=== PATIENT | male | born 1960 | race Caucasian/White ===

== ENCOUNTER → 2017-06-27 | Outpatient (CLI) | payer OTHER ==
[~2017-06-27] MED LIST: BIOF1TAB PO
--- NOTE | 2017-06-27 15:11 | RADIOLOGY IMAGING REPORT ---
FACILITY: [facility] [place] PATIENT NAME: Clint De La Rosa : 1960 MR: [id number] V: [id number] EXAM DATE: ORDERING PHYSICIAN: ANUPAMA DELGADO TECHNOLOGIST: [place] [facility] [place] De La [place] : 1960 Visit/Account:[id number] Date of Sevice: 06/27/2017 Exam type: CHEST PA AND LAT History: Cough and chest pressure Comparison: Summary 2007. Findings: Tiny calcified nodule right mid to lower lung field is stable. There is slight increased linear stra nding in the right lung base which may represent atelectasis or developing infiltrate. Left lung charito ears well aerated. The cardiac silhouette is normal. Trachea is in midline. IMPRESSION: 1. Mild linear stranding in the left lung base consistent with atelectasis and or developing infiltr ate Report Dictated By: Azul Ackerman MD at 06/27/2017 3:05 PM Report E-Signed By: Azul Ackerman MD at 06/27/2017 3:07 PM WSN:[email or web address]
== END ==
LOC: RAD 14:00
PROVIDERS: ATTEND Nurse Practitioner Family
DX: R91.8 Other nonspecific abnormal finding of lung field (principal)
CPT/HCPCS: 71046